=== PATIENT | female | born 1940 | race Caucasian/White ===

== ENCOUNTER → 2017-12-09 | Outpatient (CLI) | payer OTHER ==
[2017-12-09] MEDS: IOHEXOL 240 MG/ML 50ML VIAL. PO (09:33)
[2017-12-09] MEDS: IOHEXOL 300 MG/ML 100ML VIAL. IV (09:33)
== END | disposition home or self-care (01) ==
LOC: KCIC CT 08:05
DX: K57.30 Diverticulosis of large intestine without perforation or abscess without bleeding (principal); K42.9 Umbilical hernia without obstruction or gangrene; M51.36 Other intervertebral disc degeneration, lumbar region; M43.16 Spondylolisthesis, lumbar region
CPT/HCPCS: 72193; 74170; Q9966; Q9967

== ENCOUNTER 2020-09-09 09:38 | Emergency (ER) | payer MEDICARE, OTHER ==
[~2020-09-09] VITALS: Ht 165.1 cm; Wt 83.5 kg
[~2020-09-09 09:38] MED LIST: BACL10TA PO; GABA300C18 PO; HYDR-2765 PO; OMEP40CA45 PO; PROP10TA PO
--- NOTE | 2020-09-09 10:19 | RAD ---
CT Head W/O Contrast: History: Reason: AMS / Spl. Instructions: / History: Comparison: none Axial images were obtained without contrast. There is mild diffuse atrophy. There is no mass effect, extraaxial fluid collections or hydrocephalu s. There is no focal loss of garcia-white matter distinction to suggest acute ischemia, i.e. stroke. Impression: No acute findings. RS Compliance Statement: One or more of the following individualized dose reduction techniques were utilized for this examinat ion: 1. Automated exposure control 2. Adjustment of the mA and/or kV according to patient size 3. Use of iterative reconstruction technique Electronically signed by: Fox Shahid III, MD (09/09/2020 10:17 AM) [id number]
--- NOTE | 2020-09-09 10:34 | RAD ---
XR LUMBAR SPINE 2-3V, XR BILATERAL HIP (WITH OR WITHOUT PELVIS) LEFT 2 VIEWS 09/09/2020 10:15 AM INDICATION: Fell Thursday. Left hip and pelvic pain. COMPARISON: None available. TECHNIQUE: 3 views of the lumbar spine. The pelvis and 2 dedicated views of the left hip are provide d. FINDINGS: Lumbar spine: There is posterior fusion from L4 through S1 with bilateral pedicle screws. Laminectomy changes are identified at L4-L5 and L5-S1. There is superior plate compression fracture at T12 with 25 percent height loss which is age indeterminate. Correlate with point tenderness. There is moderate disc height loss at L2-L3 and mild disc height loss at L3-L4. Osteopenia. Moderate facet arthropathy at L2-L3 and L3-L4. Left hip: There is no acute fracture or dislocation. Joint spaces are maintained. Bone mineralization is within normal limits. Regional soft tissues are within normal limits. There is no soft tissue gas or osseous erosion. No radiopaque foreign body. Sacroiliac joints are well aligned. Superior and inf erior pubic rami are intact. Remodeling of the right inferior pubic ramus could reflect sequela prior trauma. IMPRESSION: 1. There is a superior plate compression fracture at T12 with 25 percent height loss, age indetermina te. Correlate with point tenderness. 2. Posterior fusion from L4 through S1 with mild to moderate lumbar spondylosis. 3. No acute fracture or dislocation of the left hip. Electronically signed by: Manda Sheldon MD (09/09/2020 10:32 AM) [id number]
[2020-09-09 10:58] LABS: BASO % 1 % (0-3); EOS # 0.3 x10^3/uL (0.0-0.7); EOS % 4 % (0-3); HEMOGLOBIN 10.3 g/dL (12.0-15.5); LYMPH # 1.4 x10^3/uL (1.0-4.8); LYMPH % 21 % (24-48); MEAN CORPUSCULAR HEMOGLOBIN 30 pg (25-35); MEAN CORPUSCULAR HGB CONC 33 g/dL (31-37); MEAN CORPUSCULAR VOLUME 90 fL (79-100); MONO # 0.6 x10^3/uL (0.0-1.1); MONO % 9 % (0-9); NEUT # 4.5 x10^3/uL (1.8-7.7); NEUT % 66 % (31-73); PLATELET COUNT 177 x10^3/uL (140-400); RED BLOOD COUNT 3.46 x10^6/uL (3.50-5.40); RED CELL DISTRIBUTION WIDTH 14.2 % (11.5-14.5); WHITE BLOOD COUNT 6.9 x10^3/uL (4.0-11.0)
[2020-09-09 11:00] LABS: BILIRUBIN,URINE NEGATIVE (NEG); CLARITY,URINE CLEAR; COLOR,URINE YELLOW; NITRITE,URINE NEGATIVE (NEG); PROTEIN,URINE NEGATIVE (NEG-TRACE)
[2020-09-09 11:10] LABS: BACTERIA,URINE FEW /HPF (0-FEW)
[2020-09-09 11:12] LABS: CALCIUM 8.5 mg/dL (8.5-10.1); CREATININE 0.8 mg/dL (0.6-1.0); GFR 68.8; POTASSIUM 4.7 mmol/L (3.5-5.1)
[2020-09-09 11:12] LABS: RBC,URINE 0 /HPF (0-2)
--- NOTE | 2020-09-09 11:16 | EKG ---
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
[2020-09-09 11:18] LABS: ALBUMIN 3.3 g/dL (3.4-5.0); ALBUMIN/GLOBULIN RATIO 1.1 (1.0-1.7); MAGNESIUM 2.1 mg/dL (1.8-2.4); TOTAL BILIRUBIN 0.4 mg/dL (0.2-1.0); TOTAL PROTEIN 6.2 g/dL (6.4-8.2)
--- NOTE | 2020-09-09 12:43 | PHYS DOC ---
Past Medical History Past Medical History: GERD, Other Additional Past Medical Histor: tremors, chronic back pain Past Surgical History: Appendectomy Additional Past Surgical Histo: Multiple back surgeries, prolapsed uterus Smoking Status: Never Smoker Alcohol Use: None General Adult EDM: Chief Complaint: WEAKNESS/GENERALIZED HPI: HPI: Patient is a 79 year old female who was brought here by her spouse for evaluation of generalized weakness and confusion. Patient spent almost all day on raking leaves in her back yard. Patient verbalizes over done herself, became very tired. Patient then slept most the day on Thursday, she did fell and landed on her buttock on Thursday night. Patient denies any head or neck injury. She felt a bit better on Thursday. Patient is on Neurontin, hydrocodone every 4 hours as needed for pain, baclofen. Today patient appears t o be weak, confused so her brought her here. Patient denies any cough or fever. Patient denies any chest pain, no abdominal pain, no nausea vomiting. Patient already had her Covid vaccines. Patient is complaining of low back pain and left hip pain. Review of Systems: Review of Systems: Constitutional: Denies fever or chills. [] Eyes: Denies change in visual acuity. [] HENT: Denies nasal congestion or sore throat. [] Respiratory: Denies cough or shortness of breath. [] Cardiovascular: Denies chest pain or edema. [] GI: Denies abdominal pain, nausea, vomiting, bloody stools or diarrhea. [] : Denies dysuria. [] Musculoskeletal: Denies back pain or joint pain. [] Integument: Denies rash. [] Neurologic: Denies headache, focal weakness or sensory changes. [] Positive for generalized weakness and confusion. Endocrine: Denies polyuria or polydipsia. [] Lymphatic: Denies swollen glands. [] Psychiatric: Denies depression or anxiety. [] Heart Score: C/O Chest Pain: N/A Risk Factors: Risk Factors: DM, Current or recent (<one month) smoker, HTN, HLP, family history of CAD, obesity. Risk Scores: Score 0 - 3: 2.5% MACE over next 6 weeks - Discharge Home Score 4 - 6: 20.3% MACE over next 6 weeks - Admit for Clinical Observation Score 7 - 10: 72.7% MACE over next 6 weeks - Early Invasive Strategies Current Medications: Current Medications Medications (Trade) Dose Ordered Sig/Cain Start Time Stop Time Status Last Admin Dose Admin Sodium Chloride 1,000 ml @ 1,000 mls/hr 1X ONCE 09/09/20 13:00 09/09/20 13:59 Allergies: Allergies: Allergies Coded Allergies Type Severity Reaction Last Updated Verified fentanyl Allergy Unknown 12/09/17 Yes morphine Allergy Unknown 12/09/17 Yes Physical Exam: PE: Constitutional: Well developed, well nourished, no acute distress, non-toxic appearance. [] HENT: Normocephalic, atraumatic, bilateral external ears normal, oropharynx moist, no oral exudates, nose normal. [] Eyes: PERRLA, EOMI, conjunctiva normal, no discharge. [] Neck: Normal range of motion, no tenderness, supple, no stridor. [] Cardiovascular:Heart rate regular rhythm, no murmur [] Lungs & Thorax: Bilateral breath sounds clear to auscultation [] Abdomen: Bowel sounds normal, soft, no tenderness, no masses, no pulsatile masses. [] Skin: Warm, dry, no erythema, no rash. [] Back: No tenderness, no CVA tenderness. [] Extremities: No tenderness, no cyanosis, no clubbing, ROM intact, no edema. [] Neurologic: Alert and oriented X 3, normal motor function, normal sensory function, no focal deficits noted. [] Psychologic: Affect normal, judgement normal, mood normal. [] Current Patient Data: Labs: Laboratory Tests Test 09/09/20 10:30 09/09/20 10:40 White Blood Count 6.9 x10^3/uL (4.0-11.0) Red Blood Count 3.46 x10^6/uL (3.50-5.40) L Hemoglobin 10.3 g/dL (12.0-15.5) L Hematocrit 31.0 % (36.0-47.0) L Mean Corpuscular Volume 90 fL (79-100) Mean Corpuscular Hemoglobin 30 pg (25-35) Mean Corpuscular Hemoglobin Concent 33 g/dL (31-37) Red Cell Distribution Width 14.2 % (11.5-14.5) Platelet Count 177 x10^3/uL (140-400) Neutrophils (%) (Auto) 66 % (31-73) Lymphocytes (%) (Auto) 21 % (24-48) L Monocytes (%) (Auto) 9 % (0-9) Eosinophils (%) (Auto) 4 % (0-3) H Basophils (%) (Auto) 1 % (0-3) Neutrophils # (Auto) 4.5 x10^3/uL (1.8-7.7) Lymphocytes # (Auto) 1.4 x10^3/uL (1.0-4.8) Monocytes # (Auto) 0.6 x10^3/uL (0.0-1.1) Eosinophils # (Auto) 0.3 x10^3/uL (0.0-0.7) Basophils # (Auto) 0.0 x10^3/uL (0.0-0.2) Sodium Level 143 mmol/L (136-145) Potassium Level 4.7 mmol/L (3.5-5.1) Chloride Level 109 mmol/L (98-107) H Carbon Dioxide Level 27 mmol/L (21-32) Anion Gap 7 (6-14) Blood Urea Nitrogen 11 mg/dL (7-20) Creatinine 0.8 mg/dL (0.6-1.0) Estimated GFR (Cockcroft-Gault) 68.8 BUN/Creatinine Ratio 14 (6-20) Glucose Level 93 mg/dL (70-99) Calcium Level 8.5 mg/dL (8.5-10.1) Magnesium Level 2.1 mg/dL (1.8-2.4) Total Bilirubin 0.4 mg/dL (0.2-1.0) Aspartate Amino Transferase (AST) 29 U/L (15-37) Alanine Aminotransferase (ALT) 24 U/L (14-59) Alkaline Phosphatase 78 U/L (46-116) Creatine Kinase 287 U/L (26-192) H Troponin I Quantitative < 0.017 ng/mL (0.000-0.055) Total Protein 6.2 g/dL (6.4-8.2) L Albumin 3.3 g/dL (3.4-5.0) L Albumin/Globulin Ratio 1.1 (1.0-1.7) Urine Collection Type U cath Urine Color Yellow Urine Clarity Clear Urine pH 6.0 (<5.0-8.0) Urine Specific [place] 1.010 (1.000-1.030) Urine Protein Negative mg/dL (NEG-TRACE) Urine Glucose (UA) Negative mg/dL (NEG) Urine Ketones (Stick) Negative mg/dL (NEG) Urine Blood Negative (NEG) Urine Nitrite Negative (NEG) Urine Bilirubin Negative (NEG) Urine Urobilinogen Dipstick 1.0 mg/dL (0.2 mg/dL) Urine Leukocyte Esterase Negative (NEG) Urine RBC 0 /HPF (0-2) Urine WBC 1-4 /HPF (0-4) Urine Squamous Epithelial Cells Occ /LPF Urine Bacteria Few /HPF (0-FEW) Urine Mucus Slight /LPF Laboratory Tests 09/09/20 10:30 Laboratory Tests 09/09/20 10:30 Vital Signs: Vital Signs Date Time Temp Pulse Resp B/P (MAP) Pulse Ox O2 Delivery O2 Flow Rate FiO2 09/09/20 09:45 98.4 84 16 188/82 (117 95 Room Air 98.4 EKG: EKG: EKG was done at 1006, heart rate 71 beats per minute, normal sinus rhythm, left axis deviation, no ST segment elevation. Radiology/Procedures: Radiology/Procedures: [][facility] [address] [place] [address] IMAGING REPORT Signed PATIENT: BREANA BUSCH ACCOUNT: [id number] : 1940 LOCATION: ER AGE: 79 SEX: F EXAM STATUS: PRE ER ORD. PHYSICIAN: YASMINE IRELAND DO REASON: AMS PROCEDURE: CT HEAD WO CONTRAST CT Head W/O Contrast: History: Reason: AMS / Spl. Instructions: / History: Comparison: none Axial images were obtained without contrast. There is mild diffuse atrophy. There is no mass effect, extraaxial fluid collections or hydrocephalus. There is no focal loss of garcia-white matter distinction to suggest acute ischemia, i.e. stroke. Impression: No acute findings. PQRS Compliance Statement: One or more of the following individualized dose reduction techniques were utilized for this examination: 1. Automated exposure control 2. Adjustment of the mA and/or kV according to patient size 3. Use of iterative reconstruction technique Electronically signed by: Romero Herring III, MD (09/09/2020 10:17 AM) [id number] DICTATED and SIGNED BY: ROMERO HERRING III, MD DATE: 09/09/20 [id number] [facility] [address] [place] [address] IMAGING REPORT Signed PATIENT: BREANA BUSCH ACCOUNT: [id number] : 1940 LOCATION: ER AGE: 79 SEX: F EXAM STATUS: PRE ER ORD. PHYSICIAN: YASMINE IRELAND DO REASON: FELL ON THURSDAY , LEFT HIP AND PELVIC PAIN PROCEDURE: HIP LEFT 2V WITH PELVIS XR LUMBAR SPINE 2-3V, XR BILATERAL HIP (WITH OR WITHOUT PELVIS) LEFT 2 VIEWS 09/09/2020 10:15 AM INDICATION: Fell Thursday. Left hip and pelvic pain. COMPARISON: None available. TECHNIQUE: 3 views of the lumbar spine. The pelvis and 2 dedicated views of the left hip are provided. FINDINGS: Lumbar spine: There is posterior fusion from L4 through S1 with bilateral pedicle screws. Laminectomy changes are identified at L4-L5 and L5-S1. There is superior plate compression fracture at T12 with 25 percent height loss which is age indeterminate. Correlate with point tenderness. There is moderate disc height loss at L2-L3 and mild disc height loss at L3-L4. Osteopenia. Moderate facet arthropathy at L2-L3 and L3-L4. Left hip: There is no acute fracture or dislocation. Joint spaces are maintained. Bone mineralization is within normal limits. Regional soft tissues are within normal limits. There is no soft tissue gas or osseous erosion. No radiopaque foreign body. Sacroiliac joints are well aligned. Superior and inferior pubic rami are intact. Remodeling of the right inferior pubic ramus could reflect sequela prior trauma. IMPRESSION: 1. There is a superior plate compression fracture at T12 with 25 percent height loss, age indeterminate. Correlate with point tenderness. 2. Posterior fusion from L4 through S1 with mild to moderate lumbar spondylosis. 3. No acute fracture or dislocation of the left hip. Electronically signed by: Cameron Mercado MD (09/09/2020 10:32 AM) [id number] DICTATED and SIGNED BY: CAMERON MERCADO MD DATE: 09/09/20 [id number] [facility] [address] [place] [address] IMAGING REPORT Signed PATIENT: BREANA BUSCH ACCOUNT: [id number] : 1940 LOCATION: ER AGE: 79 SEX: F EXAM STATUS: PRE ER ORD. PHYSICIAN: YASMINE IRELAND DO REASON: FELL LOWER BACK PAIN PROCEDURE: LUMBAR SPINE 2-3V XR LUMBAR SPINE 2-3V, XR BILATERAL HIP (WITH OR WITHOUT PELVIS) LEFT 2 VIEWS 09/09/2020 10:15 AM INDICATION: Fell Thursday. Left hip and pelvic pain. COMPARISON: None available. TECHNIQUE: 3 views of the lumbar spine. The pelvis and 2 dedicated views of the left hip are provided. FINDINGS: Lumbar spine: There is posterior fusion from L4 through S1 with bilateral pedicle screws. Laminectomy changes are identified at L4-L5 and L5-S1. There is superior plate compression fracture at T12 with 25 percent height loss which is age indeterminate. Correlate with point tenderness. There is moderate disc height loss at L2-L3 and mild disc height loss at L3-L4. Osteopenia. Moderate facet arthropathy at L2-L3 and L3-L4. Left hip: There is no acute fracture or dislocation. Joint spaces are maintained. Bone mineralization is within normal limits. Regional soft tissues are within normal limits. There is no soft tissue gas or osseous erosion. No radiopaque foreign body. Sacroiliac joints are well aligned. Superior and inferior pubic rami are intact. Remodeling of the right inferior pubic ramus could reflect sequela prior trauma. IMPRESSION: 1. There is a superior plate compression fracture at T12 with 25 percent height loss, age indeterminate. Correlate with point tenderness. 2. Posterior fusion from L4 through S1 with mild to moderate lumbar spondylosis. 3. No acute fracture or dislocation of the left hip. Electronically signed by: Cameron Mercado MD (09/09/2020 10:32 AM) [id number] DICTATED and SIGNED BY: CAMERON MERCADO MD DATE: 09/09/20 [id number] 0 Course & Med Decision Making: Course & Med Decision Making Pertinent Labs and Imaging studies reviewed. (See chart for details) Patient is an 79-year-old female who was evaluated in the ER due to generalized weakness and confusion. X-ray of her hip and her back did not show any acute problem. CT scan of her head did not show any acute problem. Patient was given IV fluid, she was able to get up and go to the bathroom without any problem. Patient feels much better. Patient most likely became exhausted from working in her yard raking leaves the other day. Dragon Disclaimer: Dragon Disclaimer: This electronic medical record was generated, in whole or in part, using a voice recognition dictation system. Departure Departure Impression: Primary Impression: Generalized weakness Disposition: 01 DC HOME SELF CARE/HOMELESS Condition: IMPROVED Referrals: LUCIO LARKIN MD (PCP) follow up with your doctor as needed next week Patient Instructions: Weakness Additional Instructions: Thank you for visiting our Emergency Department. We appreciate you trusting us with your care. If any additional problems come up don't hesitate to return to visit us. Please follow up with your primary care provider so they can plan additional care if needed and know about the problem that you had. If symptoms worsen come back to the Emergency Department. Any concerning symptoms that start such as chest pain, shortness of air, weakness or numbness on one side of the body, running high fevers or any other concerning symptoms return to the ER. YASMINE IRELAND DO Sep 09, 2020 12:43
[2020-09-09 12:48] VITALS: BP 159/67
[2020-09-09] MEDS ORDERED: IV NORMAL SALINE 1000ML BAG 1,000 ML IV ONE (13:00)
== END 2020-09-09 13:31 | disposition home or self-care (01) ==
LOC: ER 09:38
DX: R53.1 Weakness (principal); R41.0 Disorientation, unspecified; M25.552 Pain in left hip; M54.5 Low back pain; K21.9 Gastro-esophageal reflux disease without esophagitis; G89.29 Other chronic pain; Z90.89 Acquired absence of other organs; Z98.890 Other specified postprocedural states; Z88.6 Allergy status to analgesic agent; Z88.8 Allergy status to other drugs, medicaments and biological substances
CPT/HCPCS: 36415; 70450; 72100; 73502; 80053; 81001; 82550; 83735; 84484; 85025; 93005; 96360; 99285; J7030

== ENCOUNTER → 2020-10-01 | Outpatient (CLI) | payer MEDICARE ==
[2020-09-09 12:48] VITALS: BP 159/67
--- NOTE | 2020-10-01 13:07 | KCIC ---
EXAM: DUAL ENERGY X-RAY ABSORPTIOMETRY (DEXA). HISTORY: Postmenopausal screening. FINDINGS: The lowest measured T-score is -2.3 in the left hip, based on a bone mineral density of 0.6 65 g/cm^2. Refer to the worksheets for full detail. There is been a 9.3 percent decrease in density of the left hip and 3.0 percent decrease in density o f the lumbar spine compared to a study performed 10/08/2012. IMPRESSION: 1. Low bone mass. Bone mineral density yields a T-score between -1.0 and -2.5. Fracture risk is incre ased. 2. FRAX report: Not calculated. METHODOLOGY: Dual energy x-ray absorptiometry was performed to measure bone mineral density. The foll owing analysis is based on the 2019 Official Positions of the International Society for Clinical Dens itometry: Measurements of the hips and the average of L1-L4 are preferred. When the spine and/or hip cannot be feasibly measured or interpreted, or in the setting of hyperparathyroidism, distal radial bone minera l density may be measured. The lumbar spine T-score is based on the average bone mineral density of L1-L4. In the setting of art ifact or anatomic abnormality, some lumbar levels may be excluded, and the remaining levels used for calculation. A single lumbar level is not used for diagnosis, and if only a single level is available for assessment, another anatomic site will be used to assign a diagnosis. The hip T-score is based on the bone mineral density measurement of the femoral neck or total proxima l femur of either side, whichever is lowest. Bilateral mean values are not used for diagnosis. The forearm T-score is derived from 33% of the distal radius of the nondominant forearm. Electronically signed by: Catrachita Cooper MD (10/01/2020 1:05 PM) [id number]
== END ==
LOC: KCIC DEXA 10:51
PROVIDERS: ATTEND Family Medicine
DX: M81.0 Age-related osteoporosis without current pathological fracture (principal)
CPT/HCPCS: 77080